=== PATIENT | male | born 1940 | race Caucasian/White ===

== ENCOUNTER 2018-09-24 08:37 | Outpatient (REF) | payer MEDICARE, MEDICAID, SELFPAY ==
[2018-09-24 21:59] LABS: Abs Immature Grans 0.28 k/cumm (0.0-0.09); HCT 44.2 % (40.0-50.0); HGB 14.3 g/dL (13.5-17.5); Mean Corp. HGB Concentration 32.4 g/dL (32.0-36.0); Mean Corpuscular Hemoglobin 30.4 pg (27.0-33.0); Mean Platelet Volume 9.4 fL (8.0-11.0); Platelet Count 221 x1000/uL (130-400); RBC Distribution Width 15.4 % (11.8-14.1); White Blood Cell Count 10.84 k/cumm (4.4-10.8)
[2018-09-24 22:03] LABS: ALT 38 U/L (12-78); AST 16 U/L (15-37); Albumin 3.5 g/dL (3.4-5.0); Alkaline Phosphatase 66 U/L (46-116); Anion Gap 9.9 mmol/L (3-11); BUN 19 mg/dL (7-18); Bilirubin, Total 0.4 mg/dL (0.2-1.0); CO2 28.1 mmol/L (21.0-32.0); CREATININE 1.17 mg/dL (0.70-1.30); Chloride 102 mmol/L (98-107); Glucose 81 mg/dL (70-100); Sodium 140 mmol/L (136-145); Total Protein 6.4 g/dL (6.4-8.2)
[2018-09-24 22:41] LABS: Absolute Lymphocyte Count 1.84 k/cumm (1.2-3.4); Absolute Neutrophil Count 7.91 k/cumm (1.2-6.7)
[2018-09-24 22:42] LABS: Absolute Monocyte Count 1.08 k/cumm (0.11-0.7); Atypical Lymphocytes % 0; Diff Comment Manual Differential; RBC Morphology Normal
== END 2018-09-24 08:57 ==
LOC: LBN 08:37
PROVIDERS: Visit Provider Internal Medicine Rheumatology
DX: M33.90 Dermatopolymyositis, unspecified, organ involvement unspecified (principal); Z79.899 Other long term (current) drug therapy
CPT/HCPCS: 80053; 85025

== ENCOUNTER 2018-11-26 11:42 | Outpatient (REF) | payer MEDICARE, MEDICAID, SELFPAY | END 2018-11-26 12:02 | LOC: LBN 11:42 | PROVIDERS: Visit Provider Internal Medicine Rheumatology | DX: M33.90 Dermatopolymyositis, unspecified, organ involvement unspecified (principal); Z79.899 Other long term (current) drug therapy | CPT/HCPCS: 80053; 85025 ==

== ENCOUNTER 2018-12-01 10:30 | Outpatient (REF) | payer MEDICARE, MEDICAID, SELFPAY ==
[2018-12-01 21:49] LABS: Abs Immature Grans 0.14 k/cumm (0.0-0.09); Absolute Basophil Count 0.05 k/cumm (0.0-0.2); Absolute Lymphocyte Count 1.02 k/cumm (1.2-3.4); Absolute Monocyte Count 0.79 k/cumm (0.11-0.7); Absolute Neutrophil Count 6.23 k/cumm (1.2-6.7); Basophils % 0.6; Eosinophils % 2.4; HCT 44.1 % (40.0-50.0); HGB 14.4 g/dL (13.5-17.5); Immature Grans % 1.7; Lymphocytes % 12.1; Mean Corp. HGB Concentration 32.7 g/dL (32.0-36.0); Monocytes % 9.4; Neutrophils % 73.8; Platelet Count 252 x1000/uL (130-400); RBC 4.64 m/cumm (4.50-6.00); RBC Distribution Width 16.5 % (11.8-14.1); White Blood Cell Count 8.43 k/cumm (4.4-10.8)
[2018-12-01 22:09] LABS: ALT 30 U/L (12-78); AST 16 U/L (15-37); Albumin 3.6 g/dL (3.4-5.0); Alkaline Phosphatase 65 U/L (46-116); Anion Gap 8.6 mmol/L (3-11); BUN 20 mg/dL (7-18); Bilirubin, Total 0.4 mg/dL (0.2-1.0); CO2 29.4 mmol/L (21.0-32.0); CREATININE 1.29 mg/dL (0.70-1.30); Calcium 9.3 mg/dL (8.5-10.1); Chloride 104 mmol/L (98-107); Estimated GFR 53.73 (mL/min/1.73m2); Glucose 89 mg/dL (70-100); Potassium 5.1 mmol/L (3.5-5.1); Sodium 142 mmol/L (136-145); Total Protein 6.6 g/dL (6.4-8.2)
== END 2018-12-01 10:50 ==
LOC: LBN 10:30
PROVIDERS: Visit Provider Internal Medicine Rheumatology
DX: M33.90 Dermatopolymyositis, unspecified, organ involvement unspecified (principal); Z79.899 Other long term (current) drug therapy
CPT/HCPCS: 80053; 85025

== ENCOUNTER 2019-01-28 13:06 | Outpatient (REF) | payer MEDICARE, MEDICAID, SELFPAY ==
[2019-01-28 23:09] LABS: TSH (W/Ref FT4) 0.74 uIU/mL (0.358-3.74)
[2019-01-30 10:36] LABS: CEA 0.7 ng/ml
== END 2019-01-28 13:26 ==
LOC: NCHCN 13:06
PROVIDERS: Visit Provider Family Medicine
DX: E03.9 Hypothyroidism, unspecified (principal); C18.9 Malignant neoplasm of colon, unspecified
CPT/HCPCS: 82378; 84443

== ENCOUNTER 2019-03-20 12:07 | Outpatient (REF) | payer MEDICARE, MEDICAID, SELFPAY ==
[2019-03-20 20:55] LABS: Abs Immature Grans 0.14 k/cumm (0.0-0.09); Absolute Basophil Count 0.02 k/cumm (0.0-0.2); Absolute Eosinophil Count 0.05 k/cumm (0.0-0.7); Absolute Lymphocyte Count 0.57 k/cumm (1.2-3.4); Absolute Monocyte Count 0.33 k/cumm (0.11-0.7); Basophils % 0.2; Eosinophils % 0.5; HGB 15.1 g/dL (13.5-17.5); Immature Grans % 1.4; Lymphocytes % 5.6; Mean Corp. HGB Concentration 32.1 g/dL (32.0-36.0); Mean Corpuscular Hemoglobin 30.4 pg (27.0-33.0); Mean Corpuscular Volume 94.8 fL (80-95); Mean Platelet Volume 9.4 fL (8.0-11.0); Monocytes % 3.2; Neutrophils % 89.1; Platelet Count 250 x1000/uL (130-400); RBC 4.96 m/cumm (4.50-6.00); White Blood Cell Count 10.21 k/cumm (4.4-10.8)
[2019-03-20 21:02] LABS: ALT 89 U/L (12-78); AST 45 U/L (15-37); Albumin 3.7 g/dL (3.4-5.0); Alkaline Phosphatase 55 U/L (46-116); Anion Gap 10.8 mmol/L (3-11); BUN 24 mg/dL (7-18); Bilirubin, Total 0.9 mg/dL (0.2-1.0); CO2 29.2 mmol/L (21.0-32.0); CREATININE 1.22 mg/dL (0.70-1.30); Calcium 8.8 mg/dL (8.5-10.1); Chloride 100 mmol/L (98-107); Glucose 77 mg/dL (70-100); Potassium 4.3 mmol/L (3.5-5.1); Sodium 140 mmol/L (136-145); Total Protein 6.7 g/dL (6.4-8.2)
== END 2019-03-20 12:27 ==
LOC: LBN 12:07
PROVIDERS: Visit Provider Internal Medicine Rheumatology
DX: M33.90 Dermatopolymyositis, unspecified, organ involvement unspecified (principal); Z79.899 Other long term (current) drug therapy
CPT/HCPCS: 80053; 85025

== ENCOUNTER 2019-07-17 18:21 | Outpatient (REF) | payer MEDICARE, MEDICAID, SELFPAY ==
[2019-07-17 20:45] LABS: Abs Immature Grans 0.03 k/cumm (0.0-0.09); Absolute Basophil Count 0.04 k/cumm (0.0-0.2); Absolute Eosinophil Count 0.39 k/cumm (0.0-0.7); Absolute Lymphocyte Count 0.83 k/cumm (1.2-3.4); Absolute Monocyte Count 0.83 k/cumm (0.11-0.7); Absolute Neutrophil Count 4.46 k/cumm (1.2-6.7); Basophils % 0.6; Eosinophils % 5.9; HGB 13.9 g/dL (13.5-17.5); Immature Grans % 0.5; Lymphocytes % 12.6; Mean Corp. HGB Concentration 32.3 g/dL (32.0-36.0); Mean Corpuscular Hemoglobin 29.9 pg (27.0-33.0); Mean Corpuscular Volume 92.5 fL (80-95); Mean Platelet Volume 9.7 fL (8.0-11.0); Monocytes % 12.6; Neutrophils % 67.8; Platelet Count 304 x1000/uL (130-400); RBC 4.65 m/cumm (4.50-6.00); RBC Distribution Width 13.6 % (11.8-14.1); White Blood Cell Count 6.58 k/cumm (4.4-10.8)
[2019-07-17 21:02] LABS: ALT 30 U/L (16-63); AST 20 U/L (15-37); Albumin 3.5 g/dL (3.4-5.0); Alkaline Phosphatase 72 U/L (46-116); Anion Gap 8.3 mmol/L (3-11); BUN 17 mg/dL (7-18); Bilirubin, Total 0.4 mg/dL (0.2-1.0); CO2 30.7 mmol/L (21.0-32.0); Calcium 8.6 mg/dL (8.5-10.1); Chloride 100 mmol/L (98-107); Glucose 95 mg/dL (70-100); Magnesium 1.8 mg/dL (1.8-2.4); NT-proBNP 190 pg/mL; Potassium 4.2 mmol/L (3.5-5.1); Sodium 139 mmol/L (136-145); Total Protein 6.7 g/dL (6.4-8.2)
== END 2019-07-17 18:41 ==
LOC: NCHCN 18:21
PROVIDERS: Visit Provider Nurse Practitioner Family
DX: I25.10 Atherosclerotic heart disease of native coronary artery without angina pectoris (principal); R06.02 Shortness of breath; J44.9 Chronic obstructive pulmonary disease, unspecified
CPT/HCPCS: 80053; 83735; 83880; 85025

== ENCOUNTER 2020-06-29 12:23 | Outpatient (REF) | payer MEDICARE, MEDICAID, SELFPAY ==
[2020-06-29 21:04] LABS: Hemoglobin A1C 5.9 % (3.8-5.6)
[2020-06-29 21:10] LABS: ALT 23 U/L (16-63); AST 15 U/L (15-37); Albumin 3.9 g/dL (3.4-5.0); Alkaline Phosphatase 70 U/L (46-116); Anion Gap 8.5 mmol/L (3-11); BUN 16 mg/dL (7-18); Bilirubin, Total 0.7 mg/dL (0.2-1.0); CO2 28.5 mmol/L (21.0-32.0); CREATININE 1.16 mg/dL (0.70-1.30); Calcium 9.4 mg/dL (8.5-10.1); Chloride 104 mmol/L (98-107); Glucose 90 mg/dL (74-106); Potassium 4.7 mmol/L (3.5-5.1); Sodium 141 mmol/L (136-145); TSH 0.77 uIU/mL (0.36-3.74); Total Protein 7.3 g/dL (6.4-8.2)
[2020-06-30 04:48] LABS: Vitamin D 25 Total 55.4 ng/ml (30-100)
== END 2020-06-29 12:43 ==
LOC: NCHCN 12:23
PROVIDERS: Visit Provider Family Medicine
DX: Z00.00 Encounter for general adult medical examination without abnormal findings (principal); I25.10 Atherosclerotic heart disease of native coronary artery without angina pectoris; I10 Essential (primary) hypertension; R73.09 Other abnormal glucose; E55.9 Vitamin D deficiency, unspecified; E03.9 Hypothyroidism, unspecified; E66.9 Obesity, unspecified
CPT/HCPCS: 80053; 82306; 83036; 84443

== ENCOUNTER 2025-08-20 15:11 | Outpatient (REF) | payer MEDICARE, MEDICAID, SELFPAY ==
[2025-08-20 18:08] LABS: HCT 42.5 % (40.0-50.0); HGB 13.3 g/dL (13.5-17.5); MCH 26.8 pg (27.0-33.0); MCHC 31.3 % (32.0-36.0); MCV 86 fL (80-95); MPV 10.1 fL (8.0-11.0); Platelet Count 269 10^3/uL (130-400); RBC 4.97 10^6/uL (4.36-5.78); RDW 16.4 % (11.8-14.1); RDW-SD 51.1 fL; WBC 6.72 10^3/uL (4.4-10.8)
[2025-08-20 18:18] LABS: Iron 59 ug/dL (65-175)
[2025-08-20 18:47] LABS: ALT 23 U/L (16-63); AST 25 U/L (15-37); Albumin 3.7 g/dL (3.4-5.0); Alkaline Phosphatase 115 U/L (46-116); Anion Gap 7.5 mmol/L (3-11); BUN 30 mg/dL (7-18); Bilirubin, Total 0.8 mg/dL (0.2-1.0); CO2 26.5 mmol/L (21.0-32.0); Calcium 9.1 mg/dL (8.5-10.1); Calculated LDL 80 mg/dL (<100); Chloride 103 mmol/L (98-107); Cholesterol 151 mg/dL (<200); Estimated GFR 30.09 (mL/min/1.73m2); Ferritin 125 ng/mL (26-388); Glucose 95 mg/dL (74-106); HDL Cholesterol 38 mg/dL (>or=40); Magnesium 2.0 mg/dL (1.8-2.4); Potassium 5.6 mmol/L (3.5-5.1); Sodium 137 mmol/L (136-145); TSH 0.78 uIU/mL (0.36-3.74); Total Protein 7.9 g/dL (6.4-8.2); Triglyceride 168 mg/dL (<150); Vitamin B12 347 pg/mL (193-986)
[2025-08-20 18:56] LABS: Hemoglobin A1C 6.3 % (<5.7)
[2025-08-21 22:26] LABS: T3,Free 3.0 pg/mL (2.8-5.3)
[2025-08-23 10:51] LABS: Folate 16.6 ng/mL (See Note)
== END 2025-08-20 15:12 | disposition home or self-care (01) ==
LOC: NCHCN 15:11
PROVIDERS: PCP Physician Assistant; Visit Provider Physician Assistant
DX: E89.0 Postprocedural hypothyroidism (principal); Z13.1 Encounter for screening for diabetes mellitus; R20.2 Paresthesia of skin; I25.10 Atherosclerotic heart disease of native coronary artery without angina pectoris
CPT/HCPCS: 80053; 80061; 85027; 82607; 82728; 82746; 83036; 83540; 83735; 84439; 84443; 84481

== ENCOUNTER 2025-10-14 13:43 | Outpatient (REF) | payer MEDICARE, MEDICAID, SELFPAY ==
[2025-10-14 15:51] LABS: Anion Gap 7.8 mmol/L (3-11); BUN 21 mg/dL (9-23); CO2 24.2 mmol/L (20.0-31.0); Calcium 8.8 mg/dL (8.3-10.6); Chloride 107 mmol/L (98-107); Glucose 91 mg/dL (74-106); Potassium 5.2 mmol/L (3.5-5.1); Sodium 139 mmol/L (136-145)
== END 2025-10-14 13:44 | disposition home or self-care (01) ==
LOC: NCHCN 13:43
PROVIDERS: PCP Physician Assistant; Visit Provider Physician Assistant
DX: E87.5 Hyperkalemia (principal)
CPT/HCPCS: 80048